=== PATIENT | female | born 1990 | race Two or more races ===

== ENCOUNTER 2019-10-12 19:28 | Observation (INO) | payer SELFPAY ==
[2019-10-12 20:22] LABS: BILIRUBIN,URINE NEGATIVE (NEG); CLARITY,URINE CLEAR; COLOR,URINE YELLOW; NITRITE,URINE NEGATIVE (NEG); PROTEIN,URINE NEGATIVE (NEG-TRACE)
[2019-10-12 20:27] LABS: BACTERIA,URINE FEW /HPF (0-FEW); RBC,URINE 0 /HPF (0-2); SQUAMOUS EPITHELIAL CELL,UR MOD /LPF
--- NOTE | 2019-10-12 22:06 | RAD ---
Exam: Ultrasound OB limited Indication: . TANISHA, postdates Technique: Real-time grayscale and color Doppler images of the pelvis were obtained by the department chief load dispatcher. Comparisons: None FINDINGS: There is a single live intrauterine gestation with heart rate measured at 135 bpm. Fetus is cephalic in positioning. measurements as follows: BPD: 9.1 cm corresponding to 37 weeks 0 days Head circumference: 34.8 cm corresponding to 40 weeks 2 days Abdominal circumference: 31.8 cm corresponding to 35 weeks 5 days Femur length: 7.1 cm corresponding to 36 weeks 4 days TANISHA: 11.5 cm. Placenta is fundal and appears normal. No free fluid identified in the pelvis. IMPRESSION: 1. Single live intrauterine gestation measuring 37 weeks 3 days gestation by current ultrasound. 2. TANISHA measures 11.5 cm. Electronically signed by: Kevin Perea MD (10/12/2019 10:04 PM) [id number]
== END 2019-10-12 22:45 | disposition home or self-care (01) ==
LOC: 3 SO LND 19:28
PROVIDERS: ADMIT Obstetrics & Gynecology; ATTEND Obstetrics & Gynecology
DX: O48.0 Post-term pregnancy (principal); O62.9 Abnormality of forces of labor, unspecified; O99.89 Other specified diseases and conditions complicating pregnancy, childbirth and the puerperium; M54.5 Low back pain; O26.893 Other specified pregnancy related conditions, third trimester; R10.30 Lower abdominal pain, unspecified; Z3A.40 40 weeks gestation of pregnancy
CPT/HCPCS: 59025; 76815; 81001; 87086; G0378; G0379

== ENCOUNTER → 2019-10-13 | Outpatient (CLI) | payer SELFPAY ==
[~2019-10-13] MED LIST: IBUP-1027 PO
== END | disposition home or self-care (01) ==
LOC: LAB 15:27
PROVIDERS: ATTEND Obstetrics & Gynecology
DX: Z20.828 Contact with and (suspected) exposure to other viral communicable diseases (principal)
CPT/HCPCS: U0003-CS

== ENCOUNTER 2019-10-17 01:26 | Inpatient (IN) | payer SELFPAY ==
[~2019-10-17] VITALS: Ht 149.9 cm; Wt 54.0 kg
[2019-10-17] MEDS ORDERED: IV RINGERS,LACTATED 1000ML 1,000 ML IV SCH ×2 (01:54→20:07)
[2019-10-17] MEDS ORDERED: LIDOCAINE 1% PF 30 ML VIAL. INJ PRN (02:00)
[2019-10-17] MEDS ORDERED: ACETAMINOPHEN 325 MG TABLET. PO PRN (02:00)
[2019-10-17] MEDS ORDERED: 0.9 % SODIUM CHLORIDE 10 ML DISP.SYRIN. IV PRN (02:00)
[2019-10-17] MEDS ORDERED: fentaNYL PF VIAL 100 MCG/2 ML VIAL IVP PRN ×3 (02:00)
[2019-10-17] MEDS ORDERED: BUTORPHANOL 2 MG/ML VIAL. IVP PRN ×2 (02:00)
[2019-10-17] MEDS ORDERED: ONDANSETRON PF 4 MG/2 ML VIAL. IVP PRN (02:00)
[2019-10-17] MEDS ORDERED: OXYTOCIN 30 UNIT/500 ML PREMIX 500 ML IV PRN ×2 (02:00)
[2019-10-17] MEDS ORDERED: MAG HYDROX/ALUMINUM HYD/SIMETH 30 ML ORAL.SUSP PO PRN (02:00)
[2019-10-17] MEDS ORDERED: IBUPROFEN 400 MG TABLET. PO PRN (02:00)
[2019-10-17] MEDS ORDERED: TERBUTALINE 1 MG/ML VIAL. SQ PRN (02:00)
[2019-10-17] MEDS ORDERED: PENICILLIN G K 5,000,000 UNIT in IV DEXTROSE 5% 100ML 100 ML IV ONE (02:00)
[2019-10-17 02:14] LABS: BASO # 0.1 x10^3/uL (0.0-0.2); BASO % 1 % (0-3); EOS # 0.1 x10^3/uL (0.0-0.7); EOS % 1 % (0-3); HEMOGLOBIN 12.4 g/dL (12.0-15.5); LYMPH # 2.3 x10^3/uL (1.0-4.8); LYMPH % 19 % (24-48); MEAN CORPUSCULAR HEMOGLOBIN 30 pg (25-35); MEAN CORPUSCULAR HGB CONC 34 g/dL (31-37); MEAN CORPUSCULAR VOLUME 89 fL (79-100); MONO # 0.9 x10^3/uL (0.0-1.1); MONO % 8 % (0-9); NEUT # 8.7 x10^3/uL (1.8-7.7); NEUT % 72 % (31-73); PLATELET COUNT 261 x10^3/uL (140-400); RED BLOOD COUNT 4.17 x10^6/uL (3.50-5.40); RED CELL DISTRIBUTION WIDTH 14.6 % (11.5-14.5)
[2019-10-17 02:16] LABS: BILIRUBIN,URINE NEGATIVE (NEG); CLARITY,URINE CLEAR; COLOR,URINE YELLOW; NITRITE,URINE NEGATIVE (NEG); PH,URINE 6.5 (<5.0-8.0); PROTEIN,URINE NEGATIVE (NEG-TRACE)
[2019-10-17 02:20] LABS: SQUAMOUS EPITHELIAL CELL,UR FEW /LPF
[2019-10-17 02:21] LABS: BACTERIA,URINE FEW /HPF (0-FEW); RBC,URINE 0 /HPF (0-2)
[2019-10-17 02:23] LABS: AMPHETAMINE/METHAMPHETAMINE NEG (NEG); BARBITURATES NEG (NEG); BENZODIAZEPINES NEG (NEG); CANNABINOIDS POS (NEG); COCAINE NEG (NEG); METHADONE NEG (NEG); OPIATES NEG (NEG); PHENCYCLIDINE NEG (NEG)
[2019-10-17] MEDS: IV RINGERS,LACTATED 1000ML 1,000 ML IV SCH ×3 (02:54→17:27)
--- NOTE | 2019-10-17 08:33 | PDOC1 ---
OB - History Hx of Present Care: Good Care Ultrasounds: Normal mid trimester US Obstetrical Complications: None Medical Complications: None Past Family/Social History * Past Medical, Surgical, Family and Obstetric Histories reviewed from chart. Rubella: Immune RPR/VDRL: Negative GBS Status: Positive HBsAG: Negative OB - Chief Complaint & HPI Date of Admission: Date of Admission: Oct 17, 2019 at 01:26 Chief Complaint/History : 1 Para: 0 EGA: 40 Reason for admission: induction of labor Indication for induction: post dates, maternal discomfort Admission Nurse Assessment Rev: Yes OB - Admission Exam Physical Exam HEENT: Normal Heart: Regular Rate Lungs: Clear Abdomen: Gravid, Non tender, Soft Extremities: Edema Reflexes: Normal Cervical Dilatation: 1cm Effacement: 75% Station: -3 Membranes: Intact Accelerations: Accelerations Present Decelerations: No decelerations Contractions on Admission: >10 Minutes Apart Intensity: Mild Text A: 40 wks IUP IOL secondary post term and discomforts GBS positive P: Admit IOL pitocin. Start Pen G prophylaxis for GBS status. DARCI ALMENDAREZ Jr, MD Oct 17, 2019 08:33
[2019-10-17] MEDS: PENICILLIN G K 2,500,000 UNIT in IV DEXTROSE 5% 50 ML IV SCH ×4 (10:29→22:20)
[2019-10-17] MEDS ORDERED: ROPIVacaine 0.2% PF 10 ML VIAL. ONE ×2 (19:38→20:00)
[2019-10-17] MEDS ORDERED: L&D EPIDURAL SYRINGE 50 ML ONE (19:38)
[2019-10-17] MEDS ORDERED: L&D EPIDURAL 50 ML SYRINGE. ONE (20:00)
[2019-10-17] MEDS ORDERED: IV RINGERS,LACTATED 500ML 500 ML IV PRN (20:15)
[2019-10-17] MEDS ORDERED: ATROPINE 0.5 MG/5 ML DISP.SYRINGE. IV PRN (20:15)
[2019-10-17] MEDS ORDERED: BUPIVACAINE MPF 0.25% 30 ML VIAL. EPID PRN (20:15)
[2019-10-17] MEDS ORDERED: PHENYLEPHRINE in 0.9% NACL PF 1 MG/10 ML SYRINGE. IV PRN (20:15)
[2019-10-17] MEDS ORDERED: fentaNYL PF VIAL 100 MCG/2 ML VIAL EPID PRN (20:15)
[2019-10-17] MEDS ORDERED: L&D EPIDURAL SYRINGE 50 ML EPID PRN (20:15)
[2019-10-17] MEDS ORDERED: ROPIVacaine 0.2% PF 10 ML VIAL. EPID PRN (20:15)
[2019-10-17] MEDS ORDERED: NALOXONE 0.4 MG/ML VIAL. IV PRN (20:15)
[2019-10-17] MEDS ORDERED: ePHEDrine PF IN SALINE 50 MG/10 ML SYRINGE. IV PRN (20:15)
[2019-10-18] MEDS: IV RINGERS,LACTATED 1000ML 1,000 ML IV SCH ×3 (01:27→17:27)
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
[2019-10-18] MEDS ORDERED: OXYTOCIN 30 UNIT/500 ML PREMIX 500 ML IV PRN (03:30)
[2019-10-18] MEDS ORDERED: SIMETHICONE 80 MG TAB.CHEW PO PRN (03:30)
[2019-10-18] MEDS ORDERED: MAGNESIUM HYDROXIDE 2,400 MG/30 ML ORAL.SUSP. PO PRN (03:30)
[2019-10-18] MEDS ORDERED: BENZOCAINE 20% TOPICAL AEROSOL SPRAY 57GM CAN. TP PRN (03:30)
[2019-10-18] MEDS ORDERED: TDaP (Adacel) per PROTOCOL. MC PRN (03:30)
[2019-10-18] MEDS ORDERED: diphenhydrAMINE HCL 25 MG CAPSULE PO PRN (03:30)
[2019-10-18] MEDS ORDERED: HYDROCORTISONE 1% TOPICAL OINTMENT 30GM TUBE. TP PRN (03:30)
[2019-10-18] MEDS ORDERED: ACETAMINOPHEN 325 MG TABLET. PO PRN (03:30)
[2019-10-18] MEDS ORDERED: PHENYLEPH/MINERAL OIL/PETROLAT RECTAL OINTMENT TUBE. RC PRN (03:30)
[2019-10-18] MEDS ORDERED: MMR per PROTOCOL. MC PRN (03:30)
[2019-10-18] MEDS ORDERED: 0.9 % SODIUM CHLORIDE 10 ML DISP.SYRIN. IV PRN (03:30)
[2019-10-18] MEDS ORDERED: ZOLPIDEM 5 MG TABLET. PO PRN (03:30)
[2019-10-18] MEDS ORDERED: MAG HYDROX/ALUMINUM HYD/SIMETH 30 ML ORAL.SUSP PO PRN (03:30)
[2019-10-18 05:45] VITALS: BP 110/69
[2019-10-18] MEDS: IBUPROFEN 400 MG TABLET. PO PRN ×2 (06:26→19:53)
[2019-10-18] MEDS: PRENATAL MULTIVITAMIN TABLET. PO SCH (09:00)
[2019-10-18 09:14] VITALS: BP 128/79
[2019-10-18 09:16] VITALS: BP 90/49
[2019-10-18 15:00] VITALS: BP 108/65
[2019-10-18] MEDS: DOCUSATE SODIUM 100 MG CAPSULE. PO PRN (19:53)
[2019-10-18] MEDS: oxyCODONE/APAP 5/325 1 TAB TABLET PO PRN (19:53)
[2019-10-18 21:00] VITALS: BP 87/55
[2019-10-19 01:22] VITALS: BP 98/61
[2019-10-19] MEDS: IV RINGERS,LACTATED 1000ML 1,000 ML IV SCH ×3 (01:27→17:27)
[2019-10-19 06:04] VITALS: BP 95/58
[2019-10-19 07:13] LABS: BASO % 0 % (0-3); EOS # 0.1 x10^3/uL (0.0-0.7); EOS % 0 % (0-3); HEMATOCRIT 26.4 % (36.0-47.0); HEMOGLOBIN 8.6 g/dL (12.0-15.5); LYMPH # 3.7 x10^3/uL (1.0-4.8); LYMPH % 25 % (24-48); MEAN CORPUSCULAR HEMOGLOBIN 30 pg (25-35); MEAN CORPUSCULAR HGB CONC 33 g/dL (31-37); MEAN CORPUSCULAR VOLUME 92 fL (79-100); MONO # 0.8 x10^3/uL (0.0-1.1); MONO % 6 % (0-9); NEUT # 10.4 x10^3/uL (1.8-7.7); NEUT % 69 % (31-73); PLATELET COUNT 181 x10^3/uL (140-400); RED BLOOD COUNT 2.89 x10^6/uL (3.50-5.40); RED CELL DISTRIBUTION WIDTH 14.9 % (11.5-14.5); WHITE BLOOD COUNT 15.1 x10^3/uL (4.0-11.0)
[2019-10-19] MEDS: DOCUSATE SODIUM 100 MG CAPSULE. PO PRN ×2 (09:56→22:49)
[2019-10-19] MEDS: FERROUS SULFATE 325 MG TABLET. PO SCH ×2 (09:56→22:49)
[2019-10-19] MEDS: IBUPROFEN 400 MG TABLET. PO PRN (09:56)
[2019-10-19] MEDS: PRENATAL MULTIVITAMIN TABLET. PO SCH (09:57)
--- NOTE | 2019-10-19 10:15 | PDOC ---
OB Progress Note Date of Service 10/19/19 Time of Evaluation 1015 Notes Pt. feeling well. No complaints. Lab Laboratory Tests Test 10/19/19 06:50 White Blood Count 15.1 x10^3/uL (4.0-11.0) Red Blood Count 2.89 x10^6/uL (3.50-5.40) Hemoglobin 8.6 g/dL (12.0-15.5) Hematocrit 26.4 % (36.0-47.0) Mean Corpuscular Volume 92 fL (79-100) Mean Corpuscular Hemoglobin 30 pg (25-35) Mean Corpuscular Hemoglobin Concent 33 g/dL (31-37) Red Cell Distribution Width 14.9 % (11.5-14.5) Platelet Count 181 x10^3/uL (140-400) Neutrophils (%) (Auto) 69 % (31-73) Lymphocytes (%) (Auto) 25 % (24-48) Monocytes (%) (Auto) 6 % (0-9) Eosinophils (%) (Auto) 0 % (0-3) Basophils (%) (Auto) 0 % (0-3) Neutrophils # (Auto) 10.4 x10^3/uL (1.8-7.7) Lymphocytes # (Auto) 3.7 x10^3/uL (1.0-4.8) Monocytes # (Auto) 0.8 x10^3/uL (0.0-1.1) Eosinophils # (Auto) 0.1 x10^3/uL (0.0-0.7) Basophils # (Auto) 0.0 x10^3/uL (0.0-0.2) Laboratory Tests Test 10/19/19 06:50 White Blood Count 15.1 x10^3/uL (4.0-11.0) Red Blood Count 2.89 x10^6/uL (3.50-5.40) Hemoglobin 8.6 g/dL (12.0-15.5) Hematocrit 26.4 % (36.0-47.0) Mean Corpuscular Volume 92 fL (79-100) Mean Corpuscular Hemoglobin 30 pg (25-35) Mean Corpuscular Hemoglobin Concent 33 g/dL (31-37) Red Cell Distribution Width 14.9 % (11.5-14.5) Platelet Count 181 x10^3/uL (140-400) Neutrophils (%) (Auto) 69 % (31-73) Lymphocytes (%) (Auto) 25 % (24-48) Monocytes (%) (Auto) 6 % (0-9) Eosinophils (%) (Auto) 0 % (0-3) Basophils (%) (Auto) 0 % (0-3) Neutrophils # (Auto) 10.4 x10^3/uL (1.8-7.7) Lymphocytes # (Auto) 3.7 x10^3/uL (1.0-4.8) Monocytes # (Auto) 0.8 x10^3/uL (0.0-1.1) Eosinophils # (Auto) 0.1 x10^3/uL (0.0-0.7) Basophils # (Auto) 0.0 x10^3/uL (0.0-0.2) Medications Current Medications Ringer's Solution 1,000 ml @ 125 mls/hr Q8H IV Last administered on 10/17/19at 02:54; Start 10/17/19 at 01:27 Sodium Chloride (Normal Saline Flush) 3 ml QSHIFT PRN IV AFTER MEDS AND BLOOD DRAWS; Start 10/17/19 at 02:00 Ringer's Solution 1,000 ml @ 125 mls/hr Q8H IV ; Start 10/17/19 at 01:54 Butorphanol Tartrate (Stadol) 1 mg PRN Q1HR PRN IVP mild to moderate labor pain; Start 10/17/19 at 02:00 Butorphanol Tartrate (Stadol) 2 mg PRN Q1HR PRN IVP Severe labor pain Last administered on 10/17/19at 11:34; Start 10/17/19 at 02:00 Fentanyl Citrate (Fentanyl 2ml Vial) 50 mcg PRN Q20MIN PRN IVP Labor pain; Start 10/17/19 at 02:00 Fentanyl Citrate (Fentanyl 2ml Vial) 75 mcg PRN Q20MIN PRN IVP Labor pain; Start 10/17/19 at 02:00 Fentanyl Citrate (Fentanyl 2ml Vial) 100 mcg PRN Q20MIN PRN IVP Labor pain Last administered on 10/17/19at 19:17; Start 10/17/19 at 02:00 Acetaminophen (Tylenol) 650 mg PRN Q6HRS PRN PO MILD PAIN / TEMP > 100.3'F Last administered on 10/18/19at 04:09; Start 10/17/19 at 02:00; Stop 10/18/19 at 06:01; Status DC Ondansetron HCl (Zofran) 4 mg PRN Q4HRS PRN IVP NAUSEA/VOMITING; Start 10/17/19 at 02:00 Al Hydroxide/Mg Hydroxide (Mylanta Plus Xs) 30 ml PRN Q4HRS PRN PO HEARTBURN / GAS; Start 10/17/19 at 02:00; Stop 10/18/19 at 12:00; Status DC Terbutaline Sulfate (Brethine) 0.25 mg 1X PRN PRN SQ SEE COMMENTS; Start 10/17/19 at 02:00; Stop 10/18/19 at 01:59; Status DC Lidocaine HCl (Xylocaine 1% Pf 30ml Vial) 30 ml 1X PRN PRN INJ SEE COMMENTS; Start 10/17/19 at 02:00; Stop 10/19/19 at 01:59; Status DC Oxytocin/Sodium Chloride 500 ml @ 0 mls/hr CONT PRN IV SEE I/O RECORD Last administered on 10/17/19at 06:16; Start 10/17/19 at 02:00 Oxytocin/Sodium Chloride 500 ml @ 0 mls/hr CONT PRN PRN IV Post delivery bleeding; Start 10/17/19 at 02:00 Ibuprofen (Motrin) 800 mg PRN Q6HRS PRN PO PAIN; Start 10/17/19 at 02:00; Stop 10/18/19 at 12:00; Status DC Penicillin G Potassium [id number] unit/Dextrose 100 ml @ 100 mls/hr 1X ONCE IV Last administered on 10/17/19at 06:15; Start 10/17/19 at 02:00; Stop 10/17/19 at 02:59; Status DC Penicillin G Potassium [id number] unit/Dextrose 50 ml @ 100 mls/hr Q4H IV Last administered on 10/17/19at 22:20; Start 10/17/19 at 06:00; Stop 10/18/19 at 06:00; Status DC Ropivacaine (Naropin 0.2%) 10 ml STK-MED ONCE .ROUTE ; Start 10/17/19 at 19:38; Stop 10/17/19 at 19:38; Status DC Fentanyl Citrate 50 ml @ As Directed STK-MED ONCE .ROUTE ; Start 10/17/19 at 19:38; Stop 10/17/19 at 19:38; Status DC Ringer's Solution 1,000 ml @ 1,000 mls/hr Q1H IV ; Start 10/17/19 at 20:07; Stop 10/17/19 at 21:06; Status DC Ringer's Solution 500 ml @ 500 mls/hr 1X PRN PRN IV HYPOTENSION; Start 10/17/19 at 20:15; Stop 10/18/19 at 20:14; Status DC Ephedrine Sulfate (ePHEDrine PF IN SALINE SYRINGE) 10 mg PRN Q2MIN PRN IV IF SBP<90; Start 10/17/19 at 20:15 Phenylephrine HCl (PHENYLEPHRINE in 0.9% NACL PF) 0.05 mg PRN Q2MIN PRN IV SBP less than 90; Start 10/17/19 at 20:15 Atropine Sulfate (ATROPINE 0.5mg SYRINGE) 0.4 mg PRN Q2MIN PRN IV FOR SYMPTOMATIC BRADYCARDIA; Start 10/17/19 at 20:15 Naloxone HCl (Narcan) 0.04 mg PRN Q1MIN PRN IV SEE COMMENTS; Start 10/17/19 at 20:15 Fentanyl Citrate (Fentanyl 2ml Vial) 100 mcg PRN 1X PRN EPID FOR ANESTHESIA; Start 10/17/19 at 20:15; Stop 10/18/19 at 20:14; Status DC Bupivacaine HCl (Sensorcaine Mpf 0.25%) 10 ml PRN 1X PRN EPID FOR ANESTHESIA; Start 10/17/19 at 20:15; Stop 10/18/19 at 20:14; Status DC Fentanyl Citrate 50 ml @ 14 mls/hr CONT PRN EPID PAIN Last administered on 10/18/19at 00:02; Start 10/17/19 at 20:15 Ropivacaine (Naropin 0.2%) 20 ml 1X PRN PRN EPID PER ANESTHESIA; Start 10/17/19 at 20:15; Stop 10/18/19 at 20:14; Status DC Sodium Chloride (Normal Saline Flush) 10 ml QSHIFT PRN IV AFTER MEDS AND BLOOD DRAWS; Start 10/18/19 at 03:30 Oxytocin/Sodium Chloride 500 ml @ 62.5 mls/hr CONT PRN IV SEE I/O RECORD; Start 10/18/19 at 03:30; Stop 10/18/19 at 11:29; Status DC Acetaminophen (Tylenol) 650 mg PRN Q6HRS PRN PO MILD PAIN / TEMP > 100.3'F; Start 10/18/19 at 03:30 Ibuprofen (Motrin) 800 mg PRN Q8HRS PRN PO INFLAMMATION/PAIN PREVENTION Last administered on 10/19/19at 09:56; Start 10/18/19 at 03:30 Docusate Sodium (Colace) 100 mg PRN BID PRN PO HARD STOOL Last administered on 10/19/19at 09:56; Start 10/18/19 at 03:30 Magnesium Hydroxide (Milk Of Magnesia) 2,400 mg PRN DAILY PRN PO CONSTIPATION; Start 10/18/19 at 03:30 Al Hydroxide/Mg Hydroxide (Mylanta Plus Xs) 30 ml PRN Q4HRS PRN PO HEARTBURN / GAS; Start 10/18/19 at 03:30 Simethicone (Gas-X) 80 mg PRN AFTMEALHC PRN PO GAS / BLOATING; Start 10/18/19 at 03:30 Diphenhydramine HCl (Benadryl) 25 mg PRN Q6HRS PRN PO ITCHING; Start 10/18/19 at 03:30 Benzocaine (Americaine) 1 spray PRN QID PRN TP TOPICAL PAIN; Start 10/18/19 at 03:30 Phenyleph/Shark Oil/Min Oil/Petrol (Preparation H) 1 daniela PRN QID PRN RC RECTAL PAIN; Start 10/18/19 at 03:30 Hydrocortisone (Cortaid) 1 daniela PRN QID PRN TP PERINEAL PAIN; Start 10/18/19 at 03:30 Ferrous Sulfate (Feosol) 325 mg BIDWMEALS PO Last administered on 10/19/19at 09:56; Start 10/19/19 at 08:00 Zolpidem Tartrate (Ambien) 5 mg PRN QHS PRN PO INSOMNIA, MAY REPEAT X1; Start 10/18/19 at 03:30 Info (Do NOT chart on this placeholder) 1 ea 1X PRN PRN MC SEE COMMENTS; Start 10/18/19 at 03:30 Info (Do NOT chart on this placeholder) 1 ea 1X PRN PRN MC SEE COMMENTS; Start 10/18/19 at 03:30 Oxycodone/ Acetaminophen (Percocet 5/325) 2 tab PRN Q4HRS PRN PO MODERATE PAIN, SEVERE PAIN Last administered on 10/18/19at 19:53; Start 10/18/19 at 03:30 Multivit/ Folic Acid/Iron (Multivitamin ) 1 tab DAILY PO Last administered on 10/19/19at 09:57; Start 10/18/19 at 09:00 Fentanyl Citrate (Mbfltrap-Xaszq-RQ 3 Mcg-0.1%) 50 ml STK-MED ONCE .ROUTE ; Start 10/17/19 at 20:00; Stop 10/18/19 at 12:34; Status DC Ropivacaine (Naropin 0.2%) 10 ml STK-MED ONCE .ROUTE ; Start 10/17/19 at 20:00; Stop 10/18/19 at 12:34; Status DC Exam ABd: soft, non tender, fundus firm Assessment PPD#1 s/p VAVD Plan of Care: Continue current Tx, Mgmt DARCI ALMENDAREZ Jr, MD Oct 19, 2019 10:15
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
[2019-10-19 12:00] VITALS: BP 102/56
[2019-10-19 16:30] VITALS: BP 102/66
[2019-10-19 19:00] VITALS: BP 109/63
[2019-10-19] MEDS: oxyCODONE/APAP 5/325 1 TAB TABLET PO PRN (22:54)
[2019-10-20] MEDS: IV RINGERS,LACTATED 1000ML 1,000 ML IV SCH (01:27)
[2019-10-20 06:35] VITALS: BP 103/58
[2019-10-20] MEDS: IBUPROFEN 400 MG TABLET. PO PRN (10:06)
[2019-10-20] MEDS: DOCUSATE SODIUM 100 MG CAPSULE. PO PRN (10:06)
[2019-10-20] MEDS: PRENATAL MULTIVITAMIN TABLET. PO SCH (10:06)
[2019-10-20] MEDS: FERROUS SULFATE 325 MG TABLET. PO SCH (10:06)
[2019-10-20 10:42] VITALS: BP 102/68
--- NOTE | 2019-10-20 10:46 | NUR ---
SS following up with referral to DCF. SS received notification from DCF worker, Latricia Gustafson, stating the following: "Hi Kristine, I saw mom and baby and child is good to discharge home with parents. Let me know if you have any further questions. Thanks, Latricia Gustafson [employer] [facility] Office: [phone] " Infant RN notified.
--- NOTE | 2019-10-20 13:30 | PDOC3 ---
OB DISCHARGE SUMMARY DATE OF ADMISSION: 10/17/19 DATE OF DISCHARGE: 10/20/19 REASON FOR ADMISSION: Induction of labor INTRAPARTUM PROCEDURES: Vacum Extraction, Spontanous Vag Deliv DISCHARGE DIAGNOSIS: Term Delivered DISCHARGE INFORMATION: Activity (ad sara), Diet (regular), Instructions (pelvic rest x 6 wks) HOSPITAL COURSE Term gestation delivered vaginally without complications. DARCI ALMENDAREZ Jr, MD Oct 20, 2019 13:30
[2019-10-20] MEDS ORDERED: IBUP-1027 PO (13:31)
--- NOTE | 2019-10-20 13:32 | DISCH ---
DISCHARGE INSTRUCTIONS Condition on Discharge Condition on Discharge: Stable Activity After Discharge Activity Instructions for Disc: Activity as tolerated Lifting Instructions after Dis: No heavy lifting Driving Instructions after Dis: Do not drive today Diet after Discharge Diet after Discharge: Regular Contacting the DRJesica after DC Call your doctor for: Concerns you may have Follow-Up Follow up with: Anila in 6 wks. DARCI ALMENDAREZ Jr, MD Oct 20, 2019 13:32
[2019-10-20 15:25] VITALS: BP 111/70
--- NOTE | 2019-10-20 15:25 | NUR ---
Discharge and follow up instructions reviewed and given to pt. Boarder policy reviewed and given to pt. 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 Pt denied any complaints or needs at time of D/C.
--- NOTE | 2019-10-23 12:06 | PATHOLOGY ---
[facility] Accession Number: [id number] . 01 Material submitted: . placenta - PLACENTA AND CORD . 01 Clinical history: . VACCUM ASSISTED VAGINAL DELIVERY, 41 WEEKS, GBS+ . 02 Diagnosis: Placenta, vaginal delivery: - Mature, calvo placenta weighing 556 grams (at approximately the 60th percentile for a 41 week gestation). - Focally thin (1.0-1.5 cm in diameter) three vessel umbilical cord, measuring approximately 44 cm in length, with eccentric insertion into the chorionic plate. - Meconium staining of membranes. - Acute subchorioamnionitis/acute deciduitis. - Recent and remote retromembranous hematoma. - Chronic lymphocytic deciduitis. - Intervillous thrombus. - Small villous infarct. (MLK/db; 10/20/2019) LBQ 10/23/2019 1107 Local . 02 Electronically signed: . Saima Sullivan MD, Pathologist NPI- [id number] . 01 Gross description: . The specimen is received in formalin labeled "Carissa Jerome, placenta and cord" and consists of a circular calvo placenta measuring 18.0 x 17.8 x 3.0 cm and weighing 556 g after removal of membranes and umbilical cord. The membranes are green watson to blue and translucent. The surface is green to bluegray and well vascularized with an eccentrically inserted 3 vessel umbilical cord, 5.5 cm from edge. The amnion and chorion show extensive separation. The cord measures 26.2 cm in length and ranging from 1.0-1.5 cm in diameter. Received separately is a clamped segment of umbilical cord measuring 18.8 cm in length and 1.7 cm in diameter. The cord show increased twists and no true knots. The maternal surface shows complete and intact cotyledons with approximately 30% surface calcifications and minimal adherent clot. Sectioning reveals a maroon-red and spongy parenchyma with a single 1.6 cm lesion. Laboratory Tech sections are submitted as follows: . A1: Surface vessels A2: Umbilical cord and membrane rolls A3: Full thickness section A4: Full-thickness section with lesion (SDY; 10/19/2019) SYU/SYU 10/19/2019 1111 Local . 02 Pathologist provided ICD-10: O77.0, Z3A.41 . 02 CPT . 426154 Specimen Comment: A courtesy copy of this report has been sent to [phone] Specimen Comment: Report sent to Performed at: 01 [facility] [address] [place] [address] [id number] MD Eliel Mata MD Phone: [phone] Performed at: [address] [id number] MD Delano Gomez MD Phone: [phone]
== END 2019-10-20 15:25 | disposition home or self-care (01) | DRG 807 ==
LOC: OBSVTOIN 01:26 → 3 SO LND 01:26 → 3 NORTH 10-18 05:45
PROVIDERS: ADMIT Obstetrics & Gynecology; ATTEND Obstetrics & Gynecology
PROC: 10D07Z6 Extraction of Products of Conception, Vacuum, Via Natural or Artificial Opening (ICD-10-PCS; principal; 2019-10-18)
PROC: 0HQ9XZZ Repair Perineum Skin, External Approach (ICD-10-PCS; 2019-10-18)
PROC: 00HU33Z Insertion of Infusion Device into Spinal Canal, Percutaneous Approach (ICD-10-PCS; 2019-10-18)
PROC: 3E0R3BZ Introduction of Anesthetic Agent into Spinal Canal, Percutaneous Approach (ICD-10-PCS; 2019-10-18)
DX: O48.0 Post-term pregnancy (principal); Z37.0 Single live birth; O77.0 Labor and delivery complicated by meconium in amniotic fluid; O70.0 First degree perineal laceration during delivery; O69.81X0 Labor and delivery complicated by cord around neck, without compression, not applicable or unspecified; O66.0 Obstructed labor due to shoulder dystocia; O99.824 Streptococcus B carrier state complicating childbirth; Z3A.40 40 weeks gestation of pregnancy
CPT/HCPCS: 36415; 59070; 80307; 81001; 85025; 86592; 86850; 86900; 86901; 87086; 88307; J0595; J2540; J2590; J2795; J3010; J7060; J7120; G0378